=== PATIENT | female | born 1940 ===

== ENCOUNTER 2025-04-19 18:11 | Emergency (ER) | payer MEDICARE, OTHER | END 2025-04-19 20:46 | disposition home or self-care (01) | LOC: MW.ED 18:11 | DX: J90 Pleural effusion, not elsewhere classified (principal); J44.9 Chronic obstructive pulmonary disease, unspecified; Z88.0 Allergy status to penicillin; Z79.82 Long term (current) use of aspirin; Z79.899 Other long term (current) drug therapy; Z75.3 Unavailability and inaccessibility of health-care facilities; R06.02 Shortness of breath | CPT/HCPCS: 71046; 87428; 99203; 99283; A9270; 99284 ==